=== PATIENT | female | born 1975 | race Caucasian/White ===

== ENCOUNTER → 2024-02-12 13:56 | Outpatient (REF) | payer BC, SELFPAY | LOC: WDC 13:56 | PROVIDERS: ATTENDING PHYSICIAN Obstetrics & Gynecology; FAMILY PHYSICIAN Family Medicine | DX: R92.8 Other abnormal and inconclusive findings on diagnostic imaging of breast (principal); R93.89 Abnormal findings on diagnostic imaging of other specified body structures | CPT/HCPCS: 76642 ==

== ENCOUNTER → 2024-07-09 12:15 | Outpatient (REF) | payer BC, SELFPAY | LOC: WDC 12:15 | PROVIDERS: ATTENDING PHYSICIAN Obstetrics & Gynecology; FAMILY PHYSICIAN Family Medicine | DX: Z12.31 Encounter for screening mammogram for malignant neoplasm of breast (principal) | CPT/HCPCS: 77063; 77067 ==

== ENCOUNTER → 2024-10-05 12:54 | Outpatient (REF) | payer BC, SELFPAY | LOC: WDC 12:54 | PROVIDERS: ATTENDING PHYSICIAN Family Medicine | DX: R92.2 Inconclusive mammogram (principal) | CPT/HCPCS: 76641 ==

== ENCOUNTER → 2025-07-11 13:41 | Outpatient (REF) | payer BC, SELFPAY | LOC: WDC 13:41 | PROVIDERS: ATTENDING PHYSICIAN Family Medicine | DX: Z12.31 Encounter for screening mammogram for malignant neoplasm of breast (principal) | CPT/HCPCS: 77063; 77067 ==